=== PATIENT | male | born 1960 | race Caucasian/White ===

== ENCOUNTER → 2016-08-26 | Outpatient (CLI) | payer OTHER ==
[~2016-08-26] MED LIST: ALBU8I INH; SYMB160A INH
[2016-08-26 08:33] LABS: BLOOD GAS BASE EXCESS 1.6 mmol/L (-2-2); BLOOD GAS CARBOXYHEMOGLOBIN 1.4 % (0-4); BLOOD GAS HCO3 26 mmol/L (22-26); BLOOD GAS O2 HGB SATURATION 94 % (90-100); BLOOD GAS OXYGEN CONTENT 19.8 Vol % (12.0-20.0); BLOOD GAS PCO2 42 mmHg (38-42); BLOOD GAS PO2 79 mmHg (61-120); CRITICAL VALUE NO; DRAW SITE RT RADIAL; FIO2 21 %; NUMBER OF ARTERIAL PUNCTURES 1; STAT NO; TEMP CORR TO 98.6; ULNAR PULSE PRESENT
--- NOTE | 2016-08-30 09:06 | RSPPFT ---
DATE OF PROCEDURE: 08/26/16 COMMENTS: FVC of 1.9 predicted 4.9, FEV1 of 0.8 predicted 3.5, FEV1/FVC ratio 44% predicted 70%. Post-bronchodilator increases to 2.4 and FEV1 to 1.0. Air trapping is severe with RV at 6.1 predicted 2.4. DLCO is 81%. IMPRESSION: On the basis of the above, patient has a severe obstructive lung defect with responsiveness to acutely inhaled bronchodilator.
== END ==
LOC: HRSP 07:52
PROVIDERS: ATTEND Internal Medicine Pulmonary Disease
DX: J44.9 Chronic obstructive pulmonary disease, unspecified (principal)
CPT/HCPCS: 36600; 82805; 94060; 94620; 94726; 94729